=== PATIENT | female | born 1940 | race Asian ===

== ENCOUNTER 2018-06-30 18:14 | Emergency (ER) | payer OTHER ==
[~2018-06-30] VITALS: Ht 152.4 cm; Wt 54.4 kg
[2018-06-30] MEDS ORDERED: LIDOCAINE 2%HCL (LOCAL ANESTH.) INJ 20ML MDV ONE (19:22)
[2018-06-30] MEDS ORDERED: HEPARIN IN NS 1000Units/500mL 0 ML ONE (19:22)
[2018-06-30] MEDS ORDERED: IODIXANOL 320MG/ML 100ML BTL IV ONE (19:22)
[2018-06-30] MEDS ORDERED: fentaNYL CITRATE 100 MCG/2 ML VL ONE (19:23)
[2018-06-30] MEDS ORDERED: ANGIOMAX 250 MG VIAL IV ONE (19:23)
[2018-06-30] MEDS ORDERED: ATROPINE SULFATE 1 MG/1 ML VIAL ONE (19:23)
[2018-06-30] MEDS ORDERED: EPINEPHrine HCL 1 MG/10 ML SYRG ONE (19:24)
[2018-06-30] MEDS ORDERED: MIDAZOLAM HCL 1MG/1ML-2 ML VIAL ONE (19:24)
[2018-06-30] MEDS ORDERED: SODIUM CHL 0.9% 0 ML ONE (19:24)
[2018-06-30] MEDS ORDERED: DOPamine 1600MCG/ML D5W 0 ML IV ONE (19:29)
[2018-06-30] MEDS ORDERED: NOREPINEPHRINE 8 MG/250ML KIT 0 ML IV ONE (19:29)
[2018-06-30] MEDS ORDERED: LORazepam 2MG/ML-1ML VIAL IV ONE (20:45)
[2018-06-30 21:40] LABS: Basophils # (auto) 0.1 uL; Basophils % (auto) 1.1 % (0.0-2.0); Eosinophils # (auto) 0.1 uL; Eosinophils % (auto) 1.6 % (0.0-7.0); Hematocrit 43.3 % (36.0-46.0); Hemoglobin 13.5 g/dL (12.2-16.2); Lymphocytes # (auto) 0.4 uL; Lymphocytes % (auto) 6.7 % (10.0-50.0); Mean Corpuscular Hemoglobin 29.1 pg (28.0-32.0); Mean Corpuscular Hgb Conc. 31.1 g/dL (32.0-36.0); Mean Corpuscular Volume 93.4 fL (80.0-100.0); Monocytes # (auto) 0.5 uL; Monocytes % (auto) 9.9 % (0.0-12.0); Neutrophils # (auto) 4.2 uL; Neutrophils % (auto) 80.7 % (37.0-80.0); Nucleated Red Blood Cells % 0.4 %; Platelet Count (auto) 77 10^3/uL (140-450); Red Blood Cells 4.63 10^6/uL (4.0-5.20); White Blood Cell 5.2 10^3/uL (4.4-10.8)
[2018-06-30 22:01] LABS: Anion Gap 9 (5-15); BUN/Creatinine Ratio 17.7; Blood Urea Nitrogen 33 mg/dL (7-18); Calcium 8.2 mg/dL (8.5-10.1); Carbon Dioxide 24 mmol/L (21-32); Chloride 111 mmol/L (98-107); GFR African American 34 mL/min; GFR Non-African American 28 mL/min; Glucose 59 mg/dL (74-106); Potassium 4.2 mmol/L (3.5-5.1); Sodium 144 mmol/L (136-145)
[2018-06-30 22:04] LABS: Alanine Aminotransferase 15 U/L (13-56); Alkaline Phosphatase 68 U/L (45-117); Aspartate Aminotransferase 33 U/L (15-37); Bilirubin, Total 2.1 mg/dL (0.2-1.0); Total Protein 6.8 g/dL (6.4-8.2)
[2018-06-30 22:15] LABS: INR 1.29 (0.9-1.15); Partial Thromboplastin Time 29.7 sec (23.78-33.04); Prothrombin Time 13.6 sec (9.27-12.13)
[2018-06-30] MEDS ORDERED: FUROSEMIDE 20 MG/2 ML VIAL IV ONE (22:45)
[2018-06-30 23:02] LABS: Urine Bacteria FEW /hpf (None Seen); Urine Blood Negative /uL (Negative); Urine Hyaline Cast FEW /lpf (0 - 2); Urine WBC 1 /hpf (0 - 5)
[2018-07-01] MEDS ORDERED: FUR20T PO (00:53)
[2018-07-01] MEDS ORDERED: SIMV40TA96 PO (00:53)
[2018-07-01] MEDS ORDERED: ALPR1TAB2 PO (00:53)
[2018-07-01] MEDS ORDERED: OMEP20TA69 PO (00:53)
[2018-07-01] MEDS ORDERED: HYDR-4683 PO (00:53)
[2018-07-01] MEDS ORDERED: GLIP1TAB38 PO (00:53)
[2018-07-01] MEDS ORDERED: DEXTROSE 50% SYRINGE 50 ML IV ONE (03:55)
[2018-07-01] MEDS ORDERED: DEXTROSE (50%) 50ML SYRG IV ONE (04:15)
[2018-07-01 07:40] VITALS: BP 138/72
== END 2018-07-01 08:12 | disposition short-term general hospital (02) ==
LOC: ER 18:14
DX: R06.02 Shortness of breath (principal); I50.9 Heart failure, unspecified; E11.649 Type 2 diabetes mellitus with hypoglycemia without coma; R79.89 Other specified abnormal findings of blood chemistry; N28.9 Disorder of kidney and ureter, unspecified; D69.6 Thrombocytopenia, unspecified; E78.5 Hyperlipidemia, unspecified; Z79.84 Long term (current) use of oral hypoglycemic drugs; Z79.899 Other long term (current) drug therapy
CPT/HCPCS: 36415; 36600; 51702; 71045; 80053; 81001; 82140; 82805; 82962; 83605; 83880; 84484; 85025; 85379; 85610; 85730; 93005; 96374; 96375; 99285; J1940; J2060; J7042; A6257; J0461; J2250; Q9967